=== PATIENT | male | born 1950 | race African-American/Black ===

== ENCOUNTER 2018-12-31 00:01 | Emergency (ER) | payer BC, MEDICARE ==
[2018-12-31] MEDS ORDERED: Acetaminophen 500 MG TAB ONE (02:44)
--- NOTE | 2018-12-31 08:12 | CT ---
PRELIMINARY REPORT/[facility]/EMERGENTY AFTER-HOURS PROCEDURE CT Cervical Spine Without Contrast EXAM DATE/TIME: 12/31/2018 12:37 AM CLINICAL HISTORY: 68 years old, male; Injury or trauma; Fall; Initial encounter; Abrasion; Patient HX: Er wr; Tripped o gabriel step and struck head on exercise equipment. Denies loc TECHNIQUE: Axial computed tomography images of the cervical spine without intravenous contrast. Coronal and sagittal reformatted images were created and reviewed. COMPARISON: No relevant prior studies available. FINDINGS: Vertebrae: There is multilevel endplate degenerative spurring and facet hypertrophy. Discs/Spinal canal/Neural foramina: No spinal stenosis. No neural foraminal narrowing. Soft tissues: Unremarkable. Lungs: Lung apices are normal. IMPRESSION: No cervical spine fracture or other acute traumatic CT pathology. Thank you for allowing us to participate in the care of your patient. Dictated and Authenticated by: David Ely MD 12/31/2018 1:47 AM Central Time ([place] [employer] [place]) FINAL REPORT EMERGENT AFTER HOURS CT CERVICAL SPINE WITHOUT CONTRAST: COMPARISON: 01/24/2017 FINDINGS/IMPRESSION: I agree with the findings and impression given in the preliminary report, per [facility] physician. Degenerative changes in the cervical spine without acute osseous abnormality.
--- NOTE | 2018-12-31 08:14 | CT ---
PRELIMINARY REPORT/[facility]/EMERGENTY AFTER-HOURS PROCEDURE CT Head Without Contrast EXAM DATE/TIME: 12/31/2018 12:35 AM CLINICAL HISTORY: 68 years old, male; Injury or trauma; Fall; Initial encounter; Abrasion; Not specified; Patient HX: E r wr; Tripped over step and struck head on exercise equipment. Denies loc TECHNIQUE: Axial computed tomography images of the head/brain without contrast. COMPARISON: No relevant prior studies available. FINDINGS: Brain: There is age-related diffuse cerebral and cerebellar volume loss and chronic microvascular isc hemic disease. Ventricles: Normal. No ventriculomegaly. Bones/joints: Unremarkable. No acute fracture. Sinuses: Visualized sinuses are unremarkable. No acute sinusitis. Mastoid air cells: Visualized mastoid air cells are unremarkable. No mastoid effusion. Soft tissues: Unremarkable. IMPRESSION: 1. There is age-related diffuse cerebral and cerebellar volume loss and chronic microvascular ischemi c disease. 2. No acute intracranial pathology. Thank you for allowing us to participate in the care of your patient. Dictated and Authenticated by: David Ely MD 12/31/2018 1:46 AM Central Time ([place]) FINAL REPORT EMERGENT AFTER HOURS CT BRAIN WITHOUT CONTRAST: COMPARISON: 01/24/2017 FINDINGS/IMPRESSION: I agree with the findings and impression given in the preliminary report per the [facility] physician. Small vessel ischemic disease without acute intracranial abnormality.
== END 2018-12-31 02:50 | disposition home or self-care (01) ==
LOC: ERS 00:01
DX: S09.90XA Unspecified injury of head, initial encounter (principal); Z86.73 Personal history of transient ischemic attack (TIA), and cerebral infarction without residual deficits; E78.5 Hyperlipidemia, unspecified; I10 Essential (primary) hypertension; W19.XXXA Unspecified fall, initial encounter
CPT/HCPCS: 70450; 72125

== ENCOUNTER 2021-11-29 20:27 | Emergency (ER) | payer MEDICARE ==
[2021-11-29] MEDS ORDERED: Morphine 4 MG/ML VIAL ONE (20:53)
[2021-11-29] MEDS ORDERED: Aspirin Chewable 81 MG TAB ONE (20:54)
[2021-11-29 21:31] LABS: #Eosinphils 0.1 thou/uL (0.0-0.7); #Lymphocytes 2.1 thou/uL (1.20-3.40); #Monocytes 0.5 thou/uL (0.11-0.59); #Neutrophils 8.5 thou/uL (1.40-6.50); %Basophils 0.1 % (0.0-1.0); %Eosinophils 0.5 % (0.0-10.0); %Lymphocytes 18.9 % (21.0-51.0); %Monocytes 4.5 % (0.0-10.0); Hemoglobin 13.6 g/dL (14.0-18.0); Mean Corpuscular HGB CONC 32.9 g/dL (32.0-36.0); Mean Corpuscular Hemoglobin 29.5 pg (27.0-31.0); Mean Corpuscular Volume 89.8 fL (78.0-98.0); Mean Platelet Volume 7.7 fL (7.4-10.4); Platelet Count 247 thou/uL (130-400); RBC Distribution Width 12.7 % (11.5-14.5); Red Blood Cell (RBC) Count 4.61 mill/uL (4.70-6.10); White Blood Cell (WBC) Count 11.2 thou/uL (4.8-10.8)
[2021-11-29 22:14] LABS: ALT (SGPT) 13 U/L (8-55); AST (SGOT) 17 U/L (5-34); Albumin 4.5 g/dL (3.4-4.8); Alkaline Phosphatase 68 U/L (40-110); Anion Gap 15 mmol/L (10-20); BUN (Urea Nitrogen) 10 mg/dL (8.4-25.7); Bilirubin, Total 0.4 mg/dL (0.2-1.2); Calc. Creatinine Clearance 0 mL/min (70-130); Calcium 9.6 mg/dL (7.8-10.44); Carbon Dioxide 26 mmol/L (23-31); Chloride 101 mmol/L (98-107); Globulin 3.9 g/dL (2.4-3.5); Glucose 218 mg/dL (80-115); Potassium 3.9 mmol/L (3.5-5.1); Protein, Total 8.4 g/dL (5.8-8.1); Sodium 138 mmol/L (136-145)
== END 2021-11-30 01:21 | disposition short-term general hospital (02) ==
LOC: ERS 20:27
DX: R07.9 Chest pain, unspecified (principal); M25.511 Pain in right shoulder; E78.5 Hyperlipidemia, unspecified; E78.00 Pure hypercholesterolemia, unspecified; I10 Essential (primary) hypertension; Z85.3 Personal history of malignant neoplasm of breast; Z86.73 Personal history of transient ischemic attack (TIA), and cerebral infarction without residual deficits
CPT/HCPCS: 36415; 71045; 80053; 84484; 85025; 93005; 94760; 96374; J2270

== ENCOUNTER 2021-12-14 09:55 | Outpatient (CLI) | payer MEDICARE | END 2021-12-14 09:56 | disposition home or self-care (01) | LOC: BICMAMMO 09:55 | PROVIDERS: ATTEND Family Medicine | DX: Z08 Encounter for follow-up examination after completed treatment for malignant neoplasm (principal); Z85.3 Personal history of malignant neoplasm of breast | CPT/HCPCS: 76642; 77065; G0279 ==